=== PATIENT | male | born 1975 | race Caucasian/White ===

== ENCOUNTER 2017-03-15 15:32 | Observation (INO) | payer OTHER ==
--- NOTE | 2017-03-15 16:32 | ED PDOC ---
HPI: Trauma/Fall - HPI Time Seen by Provider: 03/15/17 15:32 Chief Complaint (Nursing): Lower Extremity Problem/Injury Chief Complaint (Provider): Lower Extremity Problem/Injury History Per: Patient History/Exam Limitations: no limitations Onset/Duration Of Symptoms: Hrs (x1) Additional Complaint(s): Mark Anthony Chandler is a 41 year old male who presents to the emergency department with a complaint of right knee and leg pain status post tripping down 15 steps of stairs 1 hour prior to arrival. Denied any loss of consciousness or foot pain. PMD: none provided Past Medical History Reviewed: Historical Data, Nursing Documentation, Vital Signs Vital Signs: Last Vital Signs Temp 98.5 F 03/15/17 15:49 Pulse 83 03/15/17 20:11 Resp 16 03/15/17 20:11 BP 157/99 H 03/15/17 20:11 Pulse Ox 98 03/15/17 20:11 - Medical History PMH: No Chronic Diseases - Surgical History Surgical History: No Surg Hx - Family History Family History: States: Unknown Family Hx - Social History Current smoker - smoking cessation education provided: No Alcohol: None Drugs: Denies - Home Medications Home Medications: Ambulatory Orders Medication Instructions Recorded Naproxen 375 mg PO Q8 PRN #21 tablet 03/15/17 - Allergies Allergies/Adverse Reactions: Allergies Allergy/AdvReac Type Severity Reaction Status Date / Time No Known Allergies Allergy Verified 03/15/17 15:48 Review of Systems ROS Statement: Except As Marked, All Systems Reviewed And Found Negative Musculoskeletal: Positive for: Leg Pain (moderately to right knee and leg). Negative for: Foot Pain Neurological: Negative for: Other (LOC) Physical Exam - Reviewed Nursing Documentation Reviewed: Yes Vital Signs Reviewed: Yes - Physical Exam Appears: Positive for: Well, Non-toxic, No Acute Distress Head Exam: Positive for: ATRAUMATIC, NORMAL INSPECTION, NORMOCEPHALIC Cardiovascular/Chest: Positive for: Regular Rate, Rhythm, Chest Non Tender Respiratory: Positive for: Normal Breath Sounds, Accessory Muscle Use. Negative for: Decreased Breath Sounds, Respiratory Distress Extremity: Positive for: Tenderness (medial aspect of right knee and proximal leg but able to flex), Other (limited exam due to pain). Negative for: Normal ROM, Calf Tenderness (or ankle/foot), Deformity (or effusion/ecchymosis) Neurologic/Psych: Positive for: Alert, Oriented - Laboratory Results Result Diagrams: 03/15/17 19:04 03/15/17 19:04 - ECG O2 Sat by Pulse Oximetry: 99 (RA) Pulse Ox Interpretation: Normal - Radiology X-Ray: Viewed By Me - Progress ED Course And Treament: knee right: no fx tib fib right: no fx NAPROXNE 500MG REPEAT BP 200/110 manual LABS,EKG DONE METOPROLOL 25 MG X 1 DOSE repeat BP 154/97 EKG noted with t wave inversions V5/v6 no old ekg to compare d/w Dr. Lemus d/w Dr. Butler Medical Decision Making Medical Decision Making: Initial Impression: Right knee/leg sprain R/O fracture Initial Plan: * Xray knee (right) * Xray tibia/fibula (right) Scribe Attestation: Documented by Danii Sandoval, acting as a scribe for Trini Chandler PA-C. Provider Scribe Attestation: All medical record entries made by the Scribe were at my direction and personally dictated by me. I have reviewed the chart and agree that the record accurately reflects my personal performance of the history, physical exam, medical decision making, and the department course for this patient. I have also personally directed, reviewed, and agree with the discharge instructions and disposition. Disposition - Clinical Impression Clinical Impression: Contusion of leg, ST segment changes on electrocardiogram, Hypertensive urgency - Patient ED Disposition Is Patient to be Admitted: Yes - Disposition Referrals: [facility] [Outside] Disposition Time: 20:28 Condition: FAIR Prescriptions: Naproxen 375 mg PO Q8 PRN #21 tablet PRN Reason: Pain, Moderate (4-7) Instructions: Contusion in Adults (DC), Knee Pain (ED), Hypertensive Crisis ( GEN) Forms: [employer] ([place]), [facility] ED School/Work Excuse - Pt Status Changed To: Hospital Disposition Of: Observation
[2017-03-15] MEDS ORDERED: Naproxen 500 MG TAB PO STA (17:49)
[2017-03-15] MEDS ORDERED: Naproxen 500 MG TAB PO ONE (18:06)
[2017-03-15 19:07] LABS: BASO # 0.1 K/uL (0.0-0.2); BASO % 0.9 % (0.0-2.0); EOS # 0.1 K/uL (0.0-0.7); EOS % 1.1 % (0.0-4.0); HEMATOCRIT 43.6 % (35.0-51.0); LYMPH # 2.3 K/uL (1.0-4.3); LYMPH % 21.6 % (20.0-40.0); MEAN CELL VOLUME 89.1 fl (80.0-94.0); MEAN CORPUSCULAR HEMOGLOBIN 30.7 pg (27.0-31.0); MEAN CORPUSCULAR HGB CONC 34.5 g/dL (33.0-37.0); MONO # 0.6 K/uL (0.0-0.8); MONO % 5.5 % (0.0-10.0); NEUT # 7.5 K/uL (1.8-7.0); NEUT % 70.9 % (50.0-75.0); RED CELL DISTRIBUTION WIDTH 12.4 % (11.5-14.5); WHITE BLOOD COUNT 10.5 K/uL (4.8-10.8)
[2017-03-15 19:22] LABS: BLOOD UREA NITROGEN 12 mg/dl (9-20); CALCIUM 9.2 mg/dL (8.4-10.2); CARBON DIOXIDE 24 mmol/L (22-30); CHLORIDE 106 mmol/L (98-107); GFR AFRICAN-AMERICAN > 60; GLUCOSE,RANDOM 97 mg/dL (75-110); POTASSIUM 3.7 MMOL/L (3.6-5.0); SODIUM 141 mmol/l (132-148)
--- NOTE | 2017-03-15 20:32 | CP.PCM.HP ---
History of Present Illness - History of Present Illness History of Present Illness: PCP: None Chief Complaint: Fall/Painful right leg The patient was seen and examined in the ED HPI: 41 years old male with no significant past medical hx comes to the ED after he tripped and fell down the stairs receiving trauma to the right leg and knee. He complains of severe pain to the medial region of the right knee and proximal right leg. No LOC , Headaches, nausea, vomits, SOB nor chest pain, No dizziness. PMH: No chronic diseases nor hereditary illness PSH: Left ankle ORIF s/p left ankle Fx SH: Light smoker quit 4 months ago; Occasional Alcohol; No illegal drug use; live with family; Attends college FH: States: Unknown Family Hx Allergies: NKDA Present on Admission - Present on Admission Any Indicators Present on Admission: No History of DVT/PE: No History of Uncontrolled Diabetes: No Urinary Catheter: No Decubitus Ulcer Present: No Review of Systems - Constitutional Constitutional: absent: Fever, Headache, Lethargy - EENT Eyes: Requires Corrective Lenses. absent: Blurred Vision, Photophobia, Sees Flashes Ears: absent: Decreased Hearing, Ear Discharge, Tinnitus Nose/Mouth/Throat: absent: Epistaxis, Nasal Congestion, Sinus Pain, Sinus Pressure - Cardiovascular Cardiovascular: absent: Chest Pain, Dyspnea, Edema - Respiratory Respiratory: absent: Cough, Dyspnea, Wheezing, Stridor, Chest Congestion - Gastrointestinal Gastrointestinal: absent: Abdominal Pain, Constipation, Diarrhea, Nausea, Vomiting - Genitourinary Genitourinary: absent: Flank Pain, Hematuria, Pyuria - Musculoskeletal Additional comments: Pain to proximal right knee and leg at the medial aspect. - Integumentary Integumentary: absent: Rash, Skin Pain, Skin Ulcer, Sores, Striae, Swelling - Neurological Neurological: absent: Confusion, Dizziness, Focal Weakness, Headaches, Tingling - Psychiatric Psychiatric: absent: Anxiety, Confusion, Tactile Hallucinations - Endocrine Endocrine: absent: Palpitations, Polydipsia, Polyphagia, Polyuria - Hematologic/Lymphatic Hematologic: absent: Easy Bleeding, Easy Bruising Past Patient History - Past Social History Smoking Status: Former Smoker Chewing Tobacco Use: No Cigar Use: No Alcohol: None Drugs: Denies - CARDIAC Hx Cardiac Disorders: No - PULMONARY Hx Respiratory Disorders: No - NEUROLOGICAL Hx Neurological Disorder: No - HEENT Hx HEENT Problems: No - RENAL Hx Chronic Kidney Disease: No - ENDOCRINE/METABOLIC Hx Endocrine Disorders: No - HEMATOLOGICAL/ONCOLOGICAL Hx Blood Disorders: No Hx Cirrhosis: No - INTEGUMENTARY Hx Dermatological Problems: No - MUSCULOSKELETAL/RHEUMATOLOGICAL Hx Musculoskeletal Disorders: No - GASTROINTESTINAL Hx Gastrointestinal Disorders: No - GENITOURINARY/GYNECOLOGICAL Hx Genitourinary Disorders: No - PSYCHIATRIC Hx Psychophysiologic Disorder: No Hx Substance Use: No - SURGICAL HISTORY Hx Abdominal Aortic Aneurysm Repair: No Hx Musculoskeletal Surgery: Yes (left ankle ORIF) - ANESTHESIA Hx Anesthesia: Yes Hx Anesthesia Reactions: No Meds Allergies/Adverse Reactions: Allergies Allergy/AdvReac Type Severity Reaction Status Date / Time No Known Allergies Allergy Verified 03/15/17 15:48 Physical Exam - Constitutional Appears: No Acute Distress - Head Exam Head Exam: ATRAUMATIC, NORMAL INSPECTION, NORMOCEPHALIC - Eye Exam Eye Exam: EOMI, Normal appearance Pupil Exam: NORMAL ACCOMODATION, PERRL - ENT Exam ENT Exam: Mucous Membranes Moist, Normal External Ear Exam, Normal Oropharynx - Neck Exam Neck exam: Positive for: Full Rom, Normal Inspection. Negative for: Lymphadenopathy, Tenderness - Respiratory Exam Respiratory Exam: Clear to Auscultation Bilateral. absent: Rales, Rhonchi, Wheezes - Cardiovascular Exam Cardiovascular Exam: Gallop, REGULAR RHYTHM, RRR, +S1, +S2. absent: JVD - GI/Abdominal Exam GI & Abdominal Exam: Normal Bowel Sounds, Soft. absent: Mass, Organomegaly, Tenderness - Rectal Exam Rectal Exam: Deferred - Extremities Exam Additional comments: Painful swelling at the medial right knee and right proximal leg. Mild excoriations at the proximal right leg - Back Exam Back exam: NORMAL INSPECTION. absent: CVA tenderness (L), CVA tenderness (R) - Neurological Exam Neurological exam: Alert, CN II-XII Intact, Oriented x3, Reflexes Normal - Psychiatric Exam Psychiatric exam: Normal Affect, Normal Mood - Skin Skin Exam: Dry, Intact, Normal Color, Warm Results - Vital Signs Recent Vital Signs: Last Vital Signs Temp 98.5 F 03/15/17 15:49 Pulse 83 03/15/17 20:11 Resp 16 03/15/17 20:11 BP 157/99 H 03/15/17 20:11 Pulse Ox 99 03/15/17 20:29 - Labs Result Diagrams: 03/15/17 19:04 03/15/17 19:04 Labs: Laboratory Results - last 24 hr 03/15/17 03/15/17 03/15/17 19:04 19:04 19:50 WBC 10.5 RBC 4.90 Hgb 15.1 Hct 43.6 MCV 89.1 MCH 30.7 MCHC 34.5 RDW 12.4 Plt Count 205 MPV 8.0 Neut % (Auto) 70.9 Lymph % (Auto) 21.6 [place] % (Auto) 5.5 Eos % (Auto) 1.1 Baso % (Auto) 0.9 Neut # 7.5 H Lymph # 2.3 [place] # 0.6 Eos # 0.1 Baso # 0.1 Sodium 141 Potassium 3.7 Chloride 106 Carbon Dioxide 24 Anion Gap 13 BUN 12 Creatinine 0.9 Est GFR ( Amer) > 60 Est GFR (Non-Af Amer) > 60 Random Glucose 97 Calcium 9.2 Troponin I 0.0640 - EKG Data EKG comments: Inverted T waves in leads II; III; aVL; V5-6 Sign of nydia-lateral ischemia Left Atrial enlargement - Imaging and Cardiology Chest x-ray Status: Image reviewed by me Additional comment: No infiltrate. X Ray Right Knee Status: Image reviewed by me Additional comment: No fx nor dislocation X Ray Right Tib/Fib Additional comment: No Fx nor dislocation Assessment & Plan - Assessment and Plan (Free Text) Assessment: #. Abnormal EKG #. Fall with musculo-skeletal Pains #. Hypertensive crisis Plan: 41 years old male with no significant past medical hx comes to the ED after he tripped and fell down the stairs receiving trauma to the right leg and knee. He complains of severe pain to the medial region of the right knee and proximal right leg. No LOC , Headaches, nausea, vomits, SOB nor chest pain, No dizziness. #. Abnormal EKG with T wave depression in leads I; aVL; III; V5-6 indicating possible nydia-lateral ischemia. also left Atrial Enlargement - Consult Cardiology Dr Apple - Serial Troponin - Serial EKG - ECHO to look for abnormal wall motion and chabmer size - ASA - Lipid Profile #. Fall with musculo-skeletal Pains - Pain management with Tramadol #. Hypertensive crisis - Metoprolol - Lisinopril - follow Blood pressures #. DVT prophylaxis with Lovenox #. Code Status: Full - Date & Time Date: 03/15/17 Time: 20:32
[2017-03-16] MEDS ORDERED: Influenza Vaccine 18yr & older 0.5 ML/45 MCG SYR IM ONE (06:00)
[2017-03-16 06:09] LABS: TROPONIN I 0.054 ng/mL (0.00-0.120)
--- NOTE | 2017-03-16 07:15 | RAD ---
PROCEDURE: Radiographs of the right tibia and fibula. HISTORY: LEG INJURY COMPARISON: None available. TECHNIQUE: Frontal and lateral views obtained. FINDINGS: BONES: No fracture or destructive lesion. JOINT SPACES: Unremarkable. OTHER FINDINGS: None. IMPRESSION: Unremarkable radiographs of the right tibia and fibula. Please note: No preliminary report/ innterpretation of this examination provided by emergency department personnel.
--- NOTE | 2017-03-16 07:15 | RAD ---
PROCEDURE: Right Knee Radiographs. HISTORY: KNEE INJURY COMPARISON: None. FINDINGS: BONES: Normal. No fracture. JOINTS: Normal. No osteoarthritis. JOINT EFFUSION: None. OTHER FINDINGS: None. IMPRESSION: No acute findings related to/accounting for the clinical presentation. Please note: No preliminary report/ innterpretation of this examination provided by emergency department personnel.
--- NOTE | 2017-03-16 07:38 | RAD ---
PROCEDURE: CHEST RADIOGRAPH, 1 VIEW HISTORY: routine COMPARISON: TechNone available. FINDINGS: LUNGS: Clear. PLEURA: No pneumothorax or pleural fluid seen. CARDIOVASCULAR: Normal. OSSEOUS STRUCTURES: No significant abnormalities. VISUALIZED UPPER ABDOMEN: Normal. OTHER FINDINGS: None. IMPRESSION: No active disease. Please note: No preliminary interpretation of this examination rendered by emergency department personnel (Physician and/or PA declined to provide preliminary report of their findings/ observations).
--- NOTE | 2017-03-16 08:04 | CARD ---
APPROVED REPORT EKG Measurement Heart [id number] <Conclusion> Normal sinus rhythm Left atrial enlargement ST & T wave abnormality, consider inferolateral ischemia Abnormal ECG
--- NOTE | 2017-03-16 08:16 | CP.PCM.CON ---
History of Present Illness - History of Present Illness History of Present Illness: 41 y/o male admitted after fall Cardiology consult called for abnormal EKG Pt denies any cardiac Hx no chest pain or SOB / BOYCE no palpitations EKG: non spec St-T changes Troponin: neg Cardiac oakes the patient is stable Past Patient History - Past Medical History & Family History Past Medical History?: No - Past Social History Smoking Status: Former Smoker - CARDIAC Hx Cardiac Disorders: No - PULMONARY Hx Respiratory Disorders: No - NEUROLOGICAL Hx Neurological Disorder: No - HEENT Hx HEENT Problems: No - RENAL Hx Chronic Kidney Disease: No - ENDOCRINE/METABOLIC Hx Endocrine Disorders: No - HEMATOLOGICAL/ONCOLOGICAL Hx Blood Disorders: No Hx AIDS: No Hx Cirrhosis: No Hx Human Immunodeficiency Virus (HIV): No - INTEGUMENTARY Hx Dermatological Problems: No - MUSCULOSKELETAL/RHEUMATOLOGICAL Hx Musculoskeletal Disorders: Yes Hx Falls: Yes Hx Fractures: Yes (Left ankle fx) - GASTROINTESTINAL Hx Gastrointestinal Disorders: No - GENITOURINARY/GYNECOLOGICAL Hx Genitourinary Disorders: No - PSYCHIATRIC Hx Psychophysiologic Disorder: No Hx Substance Use: No - SURGICAL HISTORY Hx Surgeries: Yes Hx Musculoskeletal Surgery: Yes (left ankle ORIF) - ANESTHESIA Hx Anesthesia: Yes Hx Anesthesia Reactions: No Hx Malignant Hyperthermia: No Has any member of the family had a problem w/ anesthesia?: No Meds Allergies/Adverse Reactions: Allergies Allergy/AdvReac Type Severity Reaction Status Date / Time No Known Allergies Allergy Verified 03/15/17 15:48 - Medications Medications: Current Medications Acetaminophen (Tylenol 325mg Tab) 650 mg PO Q4 PRN PRN Reason: Other Aspirin (Ecotrin) 81 mg PO DAILY [facility] Enoxaparin Sodium (Lovenox) 40 mg SC DAILY [facility] PRN Reason: Protocol Metoprolol Tartrate (Lopressor) 25 mg PO Q12 CECE Tramadol HCl (Ultram) 50 mg PO Q4 PRN PRN Reason: Pain, severe (8-10) Physical Exam - Respiratory Exam Respiratory Exam: NORMAL BREATHING PATTERN - Cardiovascular Exam Cardiovascular Exam: REGULAR RHYTHM Results - Vital Signs Recent Vital Signs: Last Vital Signs Temp 97.8 F 03/16/17 05:02 Pulse 78 03/16/17 05:02 Resp 18 03/16/17 05:02 BP 146/83 03/16/17 05:02 Pulse Ox 99 03/16/17 05:02 - Labs Result Diagrams: 03/15/17 19:04 03/15/17 19:04 Labs: Laboratory Results - last 24 hr 03/15/17 03/15/17 03/15/17 19:04 19:04 19:50 WBC 10.5 RBC 4.90 Hgb 15.1 Hct 43.6 MCV 89.1 MCH 30.7 MCHC 34.5 RDW 12.4 Plt Count 205 MPV 8.0 Neut % (Auto) 70.9 Lymph % (Auto) 21.6 [place] % (Auto) 5.5 Eos % (Auto) 1.1 Baso % (Auto) 0.9 Neut # 7.5 H Lymph # 2.3 [place] # 0.6 Eos # 0.1 Baso # 0.1 Sodium 141 Potassium 3.7 Chloride 106 Carbon Dioxide 24 Anion Gap 13 BUN 12 Creatinine 0.9 Est GFR ( Amer) > 60 Est GFR (Non-Af Amer) > 60 Random Glucose 97 Calcium 9.2 Troponin I 0.0640 Triglycerides Cholesterol LDL Cholesterol Direct HDL Cholesterol 03/16/17 05:20 WBC RBC Hgb Hct MCV MCH MCHC RDW Plt Count MPV Neut % (Auto) Lymph % (Auto) [place] % (Auto) Eos % (Auto) Baso % (Auto) Neut # Lymph # [place] # Eos # Baso # Sodium Potassium Chloride Carbon Dioxide Anion Gap BUN Creatinine Est GFR ( Amer) Est GFR (Non-Af Amer) Random Glucose Calcium Troponin I 0.0540 Triglycerides 136 Cholesterol 140 LDL Cholesterol Direct 95 HDL Cholesterol 34 Assessment & Plan (1) ST segment changes on electrocardiogram Assessment and Plan: Non spec changes on EKG pt is stable cardiac oakes Status: Acute
[2017-03-16 08:25] VITALS: RESP 20
[2017-03-16] MEDS ORDERED: Enoxaparin 40 mg Syringe SC SCH (09:00)
--- NOTE | 2017-03-16 11:09 | CARD ---
APPROVED REPORT EKG Measurement Heart [id number] <Conclusion> Normal sinus rhythm Non specific st-t changes
--- NOTE | 2017-03-16 11:22 | CARD ---
APPROVED REPORT EXAM: Two-dimensional and M-mode echocardiogram with Doppler and color Doppler. Other Information Quality : ExcellentRhythm : NSR INDICATION Abnormal EKG/Arrhythmia 2D DIMENSIONS IVSd1.79 (0.7-1.1cm)LVDd3.53 (3.9-5.9cm) LVOT Diameter1.58 (1.8-2.4cm)PWd1.96 (0.7-1.1cm) IVSs1.77 (0.8-1.2cm)LVDs3.09 (2.5-4.0cm) FS (%) 12.4 %PWs2.13 (0.8-1.2cm) M-Mode DIMENSIONS Left Atrium (MM)4.96 (2.5-4.0cm)IVSd1.38 (0.7-1.1cm) Aortic Root2.78 (2.2-3.7cm)LVDd4.80 (4.0-5.6cm) Aortic Cusp Exc.1.99 (1.5-2.0cm)PWd1.68 (0.7-1.1cm) IVSs2.26 cmFS (%) 47 % LVDs2.54 (2.0-3.8cm)PWs2.45 cm Mitral Valve MV E Jnzaxjhc40.8cm/sMV DECEL [id number] A Luyhwbsi44.8cm/s MV TNT66nyC/A ratio1.8MVA (PHT)4.02cm2 TDI Lateral E' Peak V5.38cm/sMedial E' Peak V9.94cm/sE/Lateral E'16.3 E/Medial E'8.8 Pulmonary Valve PV Peak Avtgkdkd637.5cm/s Tricuspid Valve TR Peak Hlycgbui783vp/sRAP EMRKBLUV42ryYjGJ Peak Gr.25mmHg [id number] LEFT VENTRICLE The left ventricle is normal size. There is mild concentric left ventricular hypertrophy. The left ventricular function is normal. The left ventricular ejection fraction is within the normal range. The Ejection Fraction is 50-55%. There is normal LV segmental wall motion. The left ventricular diastolic function is normal. No left ventricle thrombus noted on this study. There is no mass noted in the left ventricle. RIGHT VENTRICLE The right ventricle is normal size. There is normal right ventricular wall thickness. The right ventricular systolic function is normal. ATRIA The left atrium size is normal. The right atrium size is normal. The interatrial septum is intact with no evidence for an atrial septal defect. AORTIC VALVE The aortic valve is normal in structure. No aortic regurgitation is present. There is no aortic valvular stenosis. There is no aortic valvular vegetation. MITRAL VALVE The mitral valve is normal in structure. There is no evidence of mitral valve prolapse. There is no mitral valve stenosis. There is no mitral valve regurgitation noted. TRICUSPID VALVE The tricuspid valve is normal in structure. There is no tricuspid valve regurgitation noted. There is no tricuspid valve prolapse or vegetation. There is no tricuspid valve stenosis. PULMONIC VALVE The pulmonary valve is normal in structure. There is no pulmonic valvular regurgitation. There is no pulmonic valvular stenosis. GREAT VESSELS The aortic root is normal in size. The IVC is normal in size and collapses >50% with inspiration. PERICARDIAL EFFUSION The pericardium appears normal. There is no pleural effusion. <Conclusion> The left ventricle is normal size. The left ventricular function is normal. The left ventricular ejection fraction is within the normal range. The Ejection Fraction is 50-55%. There is mild concentric left ventricular hypertrophy.
[2017-03-16 12:05] VITALS: BP 151/86; PULSE 66; TEMP 98.6; O2SAT 99
--- NOTE | 2017-03-16 12:07 | CP.PCM.DIS ---
Provider - Provider Date of Admission: 03/15/17 20:28 Attending physician: Jerrell Butler Consults: Cardio: Dr Apple Time Spent in preparation of Discharge (in minutes): 35 Diagnosis - Discharge Diagnosis (1) Contusion of leg Status: Acute (2) Hypertensive urgency Status: Acute (3) ST segment changes on electrocardiogram Status: Acute Hospital Course - Lab Results Lab Results: Most Recent Lab Values WBC 10.5 K/uL (4.8-10.8) 03/15/17 19:04 RBC 4.90 Mil/uL (4.40-5.90) 03/15/17 19:04 Hgb 15.1 g/dL (12.0-18.0) 03/15/17 19:04 Hct 43.6 % (35.0-51.0) 03/15/17 19:04 MCV 89.1 fl (80.0-94.0) 03/15/17 19:04 MCH 30.7 pg (27.0-31.0) 03/15/17 19:04 MCHC 34.5 g/dL (33.0-37.0) 03/15/17 19:04 RDW 12.4 % (11.5-14.5) 03/15/17 19:04 Plt Count 205 K/uL (130-400) 03/15/17 19:04 MPV 8.0 fl (7.2-11.7) 03/15/17 19:04 Neut % (Auto) 70.9 % (50.0-75.0) 03/15/17 19:04 Lymph % (Auto) 21.6 % (20.0-40.0) 03/15/17 19:04 [place] % (Auto) 5.5 % (0.0-10.0) 03/15/17 19:04 Eos % (Auto) 1.1 % (0.0-4.0) 03/15/17 19:04 Baso % (Auto) 0.9 % (0.0-2.0) 03/15/17 19:04 Neut # 7.5 K/uL (1.8-7.0) H 03/15/17 19:04 Lymph # 2.3 K/uL (1.0-4.3) 03/15/17 19:04 [place] # 0.6 K/uL (0.0-0.8) 03/15/17 19:04 Eos # 0.1 K/uL (0.0-0.7) 03/15/17 19:04 Baso # 0.1 K/uL (0.0-0.2) 03/15/17 19:04 Sodium 141 mmol/l (132-148) 03/15/17 19:04 Potassium 3.7 MMOL/L (3.6-5.0) 03/15/17 19:04 Chloride 106 mmol/L (98-107) 03/15/17 19:04 Carbon Dioxide 24 mmol/L (22-30) 03/15/17 19:04 Anion Gap 13 (-20) 03/15/17 19:04 BUN 12 mg/dl (9-20) 03/15/17 19:04 Creatinine 0.9 mg/dL (0.8-1.5) 03/15/17 19:04 Est GFR ( Amer) > 60 03/15/17 19:04 Est GFR (Non-Af Amer) > 60 03/15/17 19:04 Random Glucose 97 mg/dL (75-110) 03/15/17 19:04 Calcium 9.2 mg/dL (8.4-10.2) 03/15/17 19:04 Troponin I 0.0540 ng/mL (0.00-0.120) 03/16/17 05:20 Triglycerides 136 mg/DL (0-149) 03/16/17 05:20 Cholesterol 140 mg/dL (0-199) 03/16/17 05:20 LDL Cholesterol Direct 95 mg/dL (0-129) 03/16/17 05:20 HDL Cholesterol 34 MG/DL (30-70) 03/16/17 05:20 - Hospital Course Hospital Course: 41 years old male with no significant past medical hx comes to the ED after he tripped and fell down the stairs receiving trauma to the right leg and knee. He complains of severe pain to the medial region of the right knee and proximal right leg. No LOC , Headaches, nausea, vomits, SOB nor chest pain, No dizziness. EKG was done in the ED was abnormal. Though pt had no cardiac symptoms, he was observed in Telemetry . #. Abnormal EKG with T wave depression in leads I; aVL; III; V5-6 indicating possible nydia-lateral ischemia. also left Atrial Enlargement - Consulted Cardiology Dr Apple- cleared pt - Serial Troponin x 3 negative - Serial EKG- no change - ECHO Normal - ASA started - Lipid Profile : LDL =95 - no abn rhythm on Tele - Pt denies CP, no SOB, active , and goes to the gym daily #. Fall with musculo-skeletal Pains - Pain management with Tramadol - Xray : no fracture - no head trauma - gait stable #. Hypertensive Urgency - Metoprolol and Losartan started - BP monitoring #. DVT prophylaxis with Lovenox Discharge Exam - Head Exam Head Exam: ATRAUMATIC, NORMAL INSPECTION, NORMOCEPHALIC - Eye Exam Eye Exam: EOMI, Normal appearance, PERRL Pupil Exam: NORMAL ACCOMODATION - ENT Exam ENT Exam: Mucous Membranes Moist, Normal External Ear Exam - Neck Exam Neck exam: Full Rom - Respiratory Exam Respiratory Exam: NORMAL BREATHING PATTERN. absent: Respiratory Distress - Cardiovascular Exam Cardiovascular Exam: REGULAR RHYTHM, +S1, +S2 - GI/Abdominal Exam GI & Abdominal Exam: Normal Bowel Sounds, Soft. absent: Tenderness - Extremities Exam Extremities exam: full ROM, normal capillary refill, pedal pulses present - Back Exam Back exam: FULL ROM. absent: CVA tenderness (L), CVA tenderness (R) - Neurological Exam Neurological exam: Alert, CN II-XII Intact, Normal Gait, Oriented x3, Reflexes Normal - Psychiatric Exam Psychiatric exam: Normal Affect, Normal Mood - Skin Skin Exam: Dry, Normal Color, Warm Discharge Plan - Discharge Medications Prescriptions: Losartan [Cozaar] 50 mg PO DAILY #30 tab Metoprolol Succinate [Toprol XL] 25 mg PO DAILY #30 tab - Follow Up Plan Condition: GOOD Disposition: HOME/ ROUTINE Instructions: Contusion in Adults (DC), Knee Pain (ED), Hypertensive Crisis ( GEN) Additional Instructions: ff up FP clinic and Cardio clinic in 1-2 wks Referrals: [facility] [Outside]
== END 2017-03-16 14:18 | disposition home or self-care (01) ==
LOC: H.ER 15:32 → H.ERHOLD 20:28 → H.TEL 23:15
PROVIDERS: ADMIT Internal Medicine; ATTEND Internal Medicine
DX: S80.11XA Contusion of right lower leg, initial encounter (principal); W10.9XXA Fall (on) (from) unspecified stairs and steps, initial encounter; Y93.9 Activity, unspecified; Y92.9 Unspecified place or not applicable; I16.0 Hypertensive urgency; R94.31 Abnormal electrocardiogram [ECG] [EKG]; Z87.891 Personal history of nicotine dependence; Z23 Encounter for immunization
CPT/HCPCS: 36415; 71010; 73562; 73590; 80048; 80061; 84484; 85025; 90471; 93005; 93306; 99285; G0378; J1650; Q2035